=== PATIENT | female | born 1950 | race Caucasian/White ===

== ENCOUNTER 2017-03-02 11:27 | Emergency (ER) | payer MEDICARE ==
--- NOTE | 2017-03-02 11:52 | ER Document Report ---
ED Medical Screen (RME) - General Chief Complaint: Dizziness Stated Complaint: DIZZINESS Time Seen by Provider: 03/02/17 11:51 Notes: Patient states for 1 month she is had dizziness that has not abated with blood pressure medication or meclizine. She states her symptoms also now involve trouble speaking, troubles walking, and trouble swallowing. TRAVEL OUTSIDE OF THE [place] IN LAST 30 DAYS: No - Related Data Allergies/Adverse Reactions: No Known Allergies Allergy (Unverified 03/02/17 11:43) Physical Exam - Vital signs Vitals: Temp Pulse Resp BP Pulse Ox 98.4 F 88 16 152/86 H 99 03/02/17 11:39 03/02/17 11:39 03/02/17 11:39 03/02/17 11:39 03/02/17 11:39 Course - Vital Signs Vital signs: Temp Pulse Resp BP Pulse Ox 98.4 F 88 16 152/86 H 99 03/02/17 11:39 03/02/17 11:39 03/02/17 11:39 03/02/17 11:39 03/02/17 11:39
[2017-03-02 12:08] LABS: ABSOLUTE EOSINOPHILS # (AUTO) 0.1 10^3/uL (0.0-0.6); ABSOLUTE LYMPHOCYTES (AUTO) 1.1 10^3/uL (0.5-4.7); ABSOLUTE MONOCYTES (AUTO) 0.5 10^3/uL (0.1-1.4); ABSOLUTE NEUT (AUTO) 6.5 10^3/uL (1.7-8.2); BASOPHILS % (AUTO) 0.3 % (0-2); HEMATOCRIT 41.6 % (36.0-47.0); HEMOGLOBIN 14.3 g/dL (12.0-15.5); HGB HCT DIFFERENCE 1.3; MEAN CORPUSCULAR HEMOGLOBIN 29.9 pg (27.0-33.4); MEAN CORPUSCULAR HGB CONC 34.3 g/dL (32.0-36.0); MEAN CORPUSCULAR VOLUME 87 fl (80-97); MONOCYTES % (AUTO) 6.7 % (3-13); RED BLOOD COUNT 4.78 10^6/uL (3.72-5.28); RED CELL DISTRIBUTION WIDTH 13.7 % (11.5-14.0); WHITE BLOOD COUNT 8.2 10^3/uL (4.0-10.5)
[2017-03-02 12:23] LABS: ALANINE AMINOTRANSFERASE 26 U/L (9-52); ALBUMIN 4.5 g/dL (3.5-5.0); ALKALINE PHOSPHATASE 118 U/L (38-126); ANION GAP 13 (5-19); ASPARTATE AMINO TRANSFERASE 24 U/L (14-36); BILIRUBIN,DIRECT 0.4 mg/dL (0.0-0.4); BILIRUBIN,TOTAL 0.8 mg/dL (0.2-1.3); BLOOD UREA NITROGEN 10 mg/dL (7-20); CALCIUM 9.6 mg/dL (8.4-10.2); CARBON DIOXIDE 28 mmol/L (22-30); CHLORIDE 95 mmol/L (98-107); CREATININE RESULT 0.72 mg/dL (0.52-1.25); GLUCOSE 96 mg/dL (75-110); POTASSIUM 4.1 mmol/L (3.6-5.0); SODIUM 135.9 mmol/L (137-145); TOTAL PROTEIN 7.6 g/dL (6.3-8.2)
--- NOTE | 2017-03-02 12:33 | RADIOLOGY REPORT (SQ) ---
EXAM DESCRIPTION: CT HEAD WITHOUT COMPLETED DATE/TIME: 03/02/2017 12:11 pm REASON FOR STUDY: dizzy/trouble speaking COMPARISON: None. TECHNIQUE: Axial images acquired through the brain without intravenous contrast. Images reviewed wi th bone, brain and subdural windows. Images stored on PACS. All CT scanners at this facility use dose modulation, iterative reconstruction, and/or weight based d osing when appropriate to reduce radiation dose to as low as reasonably achievable (ALARA). [facility]: Dose Right [facility]: CareDose [facility]: Dose Right [facility]: Teradose 4D [facility]: [employer] RADIATION DOSE: CT Rad equipment meets quality standard of care and radiation dose reduction techniq ues were employed. CTDIvol: 64.6 mGy. DLP: 1163 mGy-cm. mGy. LIMITATIONS: None. FINDINGS: VENTRICLES: Normal size and contour. CEREBRUM: No masses. No hemorrhage. No midline shift. No evidence for acute infarction. Normal gra y/white matter differentiation. No areas of low density in the white matter. CEREBELLUM: Cerebellum looks grossly normal. The upper brainstem and cerebellar peduncles look gener ally slightly low density. In the upper ynes there appears to be a 1.6 cm roughly rounded mass. 4th ventricle looks grossly patent. EXTRAAXIAL SPACES: No fluid collections. No masses. ORBITS AND GLOBE: No intra- or extraconal masses. Normal contour of globe without masses. CALVARIUM: No fracture. PARANASAL SINUSES: No fluid or mucosal thickening. SOFT TISSUES: No mass or hematoma. OTHER: No other significant finding. IMPRESSION: 1. Suspicious posterior fossa changes. 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 MRI without and with contrast should be performed to further evaluate. EVIDENCE OF ACUTE STROKE: NO. COMMENT: Quality ID # [id number]: Final reports with documentation of one or more dose reduction techniques (e.g., Automated exposure control, adjustment of the mA and/or kV according to patient size, use of iterative reconstruction technique) TECHNICAL DOCUMENTATION: JOB ID: [id number]- All Rights Reserved
--- NOTE | 2017-03-02 13:23 | EKG REPORT ---
SEVERITY:- ABNORMAL ECG - SINUS RHYTHM LEFT AXIS DEVIATION LEFT VENTRICULAR HYPERTROPHY : Confirmed by: Bryan Alamo MD 02-Mar-2017 13:22:36
--- NOTE | 2017-03-02 13:48 | ER Document Report ---
ED Dizziness/Weakness - General Chief Complaint: Dizziness Stated Complaint: DIZZINESS Time Seen by Provider: 03/02/17 11:51 Mode of Arrival: Wheelchair Information source: Patient TRAVEL OUTSIDE OF THE [place] IN LAST 30 DAYS: No - HPI Patient complains to provider of: Dizziness Onset: Other - 2 WEEKS Onset/Duration: Gradual, Worse - PROGRESSIVE GRADUAL WORSENING, DESPITE MECLIZINE, ETC. Associated symptoms: Nausea, Vomiting, Weak all over. denies: Confused, Almost fainted, Fainted, Headache Exacerbated by: Movement of head Baseline gait: Walks w/o assistance - BEFORE ONSET OF HPI, Walks only w/ assistance - LAST 2 DAYS - Related Data Allergies/Adverse Reactions: No Known Allergies Allergy (Unverified 03/02/17 11:43) Home Medications: Current Home Medications Lisinopril [Lisinopril] 10 mg PO TID 03/02/17 [History] Meclizine HCl 25 mg PO QHS 03/02/17 [History] Past Medical History - General Information source: Patient - Social History Smoking Status: Never Smoker Cigarette use (# per day): No Chew tobacco use (# tins/day): No Frequency of alcohol use: None Drug Abuse: None Lives with: Spouse/Significant other Family History: Reviewed & Not Pertinent Patient has suicidal ideation: No Patient has homicidal ideation: No - Past Medical History Cardiac Medical History: Reports: Hx Hypertension Pulmonary Medical History: Reports: None EENT Medical History: Reports: None Neurological Medical History: Reports: None. Denies: Hx Cerebrovascular Accident, Hx Migraine, Hx Seizures Endocrine Medical History: Reports: None Renal/ Medical History: Reports: None. Denies: Hx Peritoneal Dialysis Malignancy Medical History: Reports: None GI Medical History: Reports: None Musculoskeltal Medical History: Reports None Psychiatric Medical History: Reports: None Traumatic Medical History: Reports: None. Denies: Hx Traumatic Brain Injury Past Surgical History: Reports: Hx Orthopedic Surgery - bilat knees and lower back Review of Systems - Review of Systems Constitutional: Weakness EENT: No symptoms reported. denies: Blurred vision Cardiovascular: No symptoms reported Respiratory: No symptoms reported Gastrointestinal: No symptoms reported Genitourinary: No symptoms reported Female Genitourinary: Post menopausal Musculoskeletal: No symptoms reported Skin: No symptoms reported Neurological/Psychological: See HPI Physical Exam - Vital signs Vitals: Temp Pulse Resp BP Pulse Ox 98.4 F 88 16 152/86 H 99 03/02/17 11:39 03/02/17 11:39 03/02/17 11:39 03/02/17 11:39 03/02/17 11:39 Interpretation: Hypertensive. No: Bradycardic, Tachycardic, Tachypneic - General General appearance: Appears well, Alert In distress: None - HEENT Head: Normocephalic Eyes: Normal Conjunctiva: Normal Pupils: PERRL Anterior chamber: Normal Ears: Normal Nasal: Normal Mouth/Lips: Normal Mucous membranes: Normal Pharynx: Normal Neck: Normal - Respiratory Respiratory status: No respiratory distress - Cardiovascular Rhythm: Regular - Abdominal Inspection: Normal Distension: No distension - Extremities General upper extremity: Normal inspection General lower extremity: Normal inspection - Neurological Neuro grossly intact: Yes Cognition: Normal Orientation: AAOx4 - Psychological Associated symptoms: Normal affect, Normal mood - Skin Skin Temperature: Warm Skin Moisture: Dry Skin Color: Normal Skin Turgor: Elastic Course - Re-evaluation Re-evalutation: 03/02/17 19:24 Patient states her dizziness has improved and her nausea has resolved altogether. She has no other complaints at this time. She is stable for transport to [facility] for neurosurgical care. - Vital Signs Vital signs: Temp Pulse Resp BP Pulse Ox 98.4 F 88 20 169/73 H 96 03/02/17 11:39 03/02/17 11:39 03/02/17 19:01 03/02/17 19:01 03/02/17 19:01 - Laboratory Result Diagrams: 03/02/17 11:55 03/02/17 11:55 Laboratory results interpreted by me: 03/02/17 03/02/17 11:55 11:55 Seg Neutrophils % 79.0 H Sodium 135.9 L Chloride 95 L - Diagnostic Test Radiology reviewed: Image reviewed, Reports reviewed - Consults DR. GRIFFIN Reason for consultation: 03/02/17 15:55 ACCEPTS PATIENT FOR TRANSFER TO [facility], DR. SINGH ATTENDING. Discharge - Discharge Clinical Impression: Pontine lesion Condition: Good Disposition: [facility]
[2017-03-02] MEDS ORDERED: ONDANSETRON HCL INJ/PF 4 MG/2 ML SDV IV ONE (13:57)
[2017-03-02] MEDS ORDERED: DEXAMETHASONE SOD PHOS INJ 10 MG/1 ML VIAL IV ONE (15:53)
--- NOTE | 2017-03-02 17:49 | RADIOLOGY REPORT (SQ) ---
EXAM DESCRIPTION: MRI HEAD COMBO COMPLETED DATE/TIME: 03/02/2017 4:40 pm REASON FOR STUDY: DIZZINESS; PONTINE MASS SEEN ON CT. COMPARISON: Brain CT scan dated 03/02/2017 TECHNIQUE: Multiplanar imaging includes noncontrasted T1, T2, FLAIR, diffusion with ADC map and post gadolinium contrast T1 sequences. Images stored on PACS. CONTRAST TYPE AND DOSE: 20 mL MultiHance RENAL FUNCTION: GFR > 60. LIMITATIONS: None. FINDINGS: ANATOMY: No anomalies. Normal vascular flow voids. Pituitary fossa normal. CSF SPACES: Normal in size and contour. No hemorrhage. CEREBRUM: Sulci and gyri normal in size and contour. Normal white matter signal on FLAIR imaging. No evidence of hemorrhage, mass, or extraaxial fluid collection. No abnormal enhancement post contrast. POSTERIOR FOSSA: A rim enhancing mass is identified at the level of the ynes which correlates with th e CT findings. The mass measures 1.9 x 1.9 cm in diameters. The imaging characteristics are most co nsistent with a primary brain neoplasm. Possibility of a solitary metastatic lesion cannot be exclud ed. Possibility of a brain abscess cannot be excluded but is felt to be less likely. There is exten sive surrounding white marrow edema. DIFFUSION IMAGING: Negative for acute or subacute infarction. ORBITS: No masses. Globes normal. PARANASAL SINUSES: No fluid levels. Mucosa normal. OTHER: No other significant finding. IMPRESSION: A rim enhancing mass is identified at the level of the ynes which correlates with the CT findings. The mass measures 1.9 x 1.9 cm in diameters. The imaging characteristics are most consis tent with a primary brain neoplasm. The possibility of a solitary metastatic focus cannot be exclude d. The possibility of a brain abscess cannot be excluded but is felt to be less likely. There is ex tensive surrounding white matter edema. Clinical correlation is recommended. Other findings as note d above EVIDENCE OF ACUTE STROKE: NO. TECHNICAL DOCUMENTATION: JOB ID: [id number] [employer]- All Rights Reserved
[2017-03-02 19:23] VITALS: BP 169/73
== END 2017-03-02 19:37 | disposition short-term general hospital (02) ==
LOC: ER 11:27
DX: G93.89 Other specified disorders of brain (principal); R42 Dizziness and giddiness; R11.2 Nausea with vomiting, unspecified; R53.1 Weakness; I10 Essential (primary) hypertension
CPT/HCPCS: 93005; 99285; 96374; 96375; 36415; 85025; 80053; 84484; 70553; 70450; 93010; A9577; J2405; J1100